=== PATIENT | female | born 1965 | race Caucasian/White ===

== ENCOUNTER 2018-09-26 14:51 | Emergency (ER) | payer BC ==
--- NOTE | 2018-09-26 15:44 | ED ---
Skin Complaint - HPI Summary HPI Summary: 53 y/o female presents to the urgent care c/o Bit by unknown bug to back of left knee. Using ice to ease pain. Putting benadryl cream on it and taking benadryl PO and ibuprofen. Pt felt feverish. Stated she had a hard time breathing last night. - History of Current Complaint Time Seen by Provider: 09/26/18 15:43 Stated Complaint: FEVER/BUG BITE BACK OF LEG Hx Obtained From: Patient Onset/Duration: Started Days Ago - 4 days agos possible insect bite while she was running, Still Present Skin Exposure Onset/Duration: Days Ago - 4 days ago, Worse Since: - yesterday w / subjective fever at home Timing: Constant Onset Severity: Mild Current Severity: Moderate Pain Intensity: 4 - at touch Pain Scale Used: 0-10 Numeric Skin Location: Leg - posterior left knee w/ a red rash painful s/p possible insect bite Character: Redness, Painful Aggravating Symptom(s): Touch Alleviating Symptom(s): OTC Meds - Advil PO 400mg PO, Antihistamines Associated Signs & Symptoms: Fever, Chills, Rash, Tenderness Related History: Possible Reaction to: Insect - Allergy/Home Medications Allergies/Adverse Reactions: Allergies Allergy/AdvReac Type Severity Reaction Status Date / Time No Known Allergies Allergy Verified 09/26/18 15:53 Home Medications: Home Medications Ibuprofen TAB* [Advil TAB*] 600 mg PO Q6H PRN 09/26/18 [History Confirmed ] PMH/Surg Hx/FS Hx/Imm Hx Previously Healthy: Yes - Pt deneis PMHX Infectious Disease History: Denies: Traveled Outside the [place] in Last 30 Days Discharge - Discharge Plan Prescriptions: Bacitracin OINTMENT* 1 applic TOPICAL BID #1 tube Cephalexin CAP* [Keflex CAP*] 500 mg PO QID #28 cap Referrals: Stacy Ni [Primary Care Provider] -
[2018-09-26 15:53] VITALS: BP 93/61
--- NOTE | 2018-09-26 16:15 | UC ---
Skin Complaint HPI - HPI Summary HPI Summary: 53 y/o female presents to the urgent care c/o posterior left knee w/ a red rash s/p possible insect bite on 09/23/2018. Pt reports she was running an she felt something bit her, but she didn't see it. She applied Benadryl topical cream and Ibuprofen Po tot alleviate symptoms w/o any improvement since rash has increase in size. yesterday she developed subjective fever and felt mild SOB. She has taken Advil 400mg PO to alleviate symptoms. She likes to run everyday and her BP is usually in the low side. Pt denies SOB, hoarseness, cough, throat tightening, KAUR dizziness, chest pain, abdominal pain, N/V/D. - History of Current Complaint Chief Complaint: UCSkin Time Seen by Provider: 09/26/18 15:43 Stated Complaint: FEVER/BUG BITE BACK OF LEG Hx Obtained From: Patient ?: No Onset/Duration: Gradual Onset, Lasting Days - 4 days ago possible insect bite while, Still Present, Worse Since - last night w/ subjective fever Timing: Constant Onset Severity: Mild Current Severity: Moderate Pain Intensity: 4 - at touch Pain Scale Used: 0-10 Numeric Location: Discrete - posterior side of left knee Character: Redness, Painful Aggravating Factor(s): Touch Alleviating Factor(s): OTC Meds, OTC Creams/Salves Associated Signs & Symptoms: Positive: Fever, Rash - posterior side of left knee w/ a red rash s/p possible insect bite Related History: Possible Reaction to: Insect - Allergy/Home Medications Allergies/Adverse Reactions: Allergies Allergy/AdvReac Type Severity Reaction Status Date / Time No Known Allergies Allergy Verified 09/26/18 15:53 Home Medications: Home Medications Ibuprofen TAB* [Advil TAB*] 600 mg PO Q6H PRN 09/26/18 [History Confirmed ] PMH/Surg Hx/FS Hx/Imm Hx Previously Healthy: Yes - Pt denies PMHX - Surgical History Surgical History: Yes Surgery Procedure, Year, and Place: c section. ablation. breast augmentation - Family History Known Family History: Positive: Hypertension, Diabetes - Social History Occupation: Employed Full-time Lives: With Family Alcohol Use: None Substance Use Type: None Smoking Status (MU): Never Smoked Tobacco - Immunization History Most Recent Tetanus Shot: unknown Review of Systems All Other Systems Reviewed And Are Negative: Yes Constitutional: Positive: Fever Skin: Positive: Rash - posterior side of left knee w/ a red rash s/p possible insect bite Eyes: Positive: Negative ENT: Positive: Negative Respiratory: Positive: Negative Cardiovascular: Positive: Negative Gastrointestinal: Positive: Negative Genitourinary: Positive: Negative Motor: Positive: Negative Neurovascular: Positive: Negative Musculoskeletal: Positive: Negative Neurological: Positive: Negative Psychological: Positive: Negative Is Patient Immunocompromised?: No Physical Exam - Summary Physical Exam Summary: Vital Signs Reviewed: Yes General: well appearing, well nourished female in no acute apparent pain distress, sitting comfortably on examining table Eye Exam: Normal Eyes: Positive: Conjunctiva Clear - PERRLA< EOMI, fundi grossly normal ENT: Positive: Normal ENT inspection, Hearing grossly normal, Pharynx normal, TMs normal Neck: Positive: Supple, Nontender, No Lymphadenopathy Respiratory: Positive: Chest non-tender, Lungs clear, Normal breath sounds, No respiratory distress Cardiovascular: Positive: RRR, No Murmur, Pulses Normal, Brisk Capillary Refill Abdomen Description: Positive: Nontender, No Organomegaly, Soft. Negative: CVA Tenderness (R), CVA Tenderness (L) Bowel Sounds: Positive: Present Musculoskeletal: Positive: Strength Intact, ROM Intact, No Edema Neurological: Positive: Alert, Muscle Tone Normal Psychological Exam: Normal Skin: Positive: posterior side of left knee Positive erythematous patch w/ indistinct borders w/ center insect bite about 4.0cm x 5.0cm in size, warm and tender to palpation, no drainage observed. pulses WNL, capillary refill brisk, sensation WNL. Triage Information Reviewed: Yes Vital Signs: Initial Vital Signs Temp 98.3 F 09/26/18 15:46 Pulse 104 09/26/18 15:46 Resp 18 09/26/18 15:46 BP 93/61 09/26/18 15:46 Pulse Ox 99 09/26/18 15:46 Course/Dx - Course Course Of Treatment: 53 y/o female presents to the urgent care c/o posterior left knee w/ a red rash s/p possible insect bite on 09/23/2018. Pt reports she was running an she felt something bit her, but she didn't see it. She applied Benadryl topical cream and Ibuprofen Po tot alleviate symptoms w/o any improvement since rash has increase in size. yesterday she developed subjective fever and felt mild SOB. She has taken Advil 400mg PO to alleviate symptoms. She likes to run everyday and her BP is usually in the low side. Pt denies SOB, hoarseness, cough, throat tightening, KAUR dizziness, chest pain, abdominal pain, N/V/D. Hx obtained. Pt is hemodynamically stable w/o any acute distress. Pt w/ Cellulitis of Left posterior knee s/p insect bite. Pt Rx Keflex PO, Benadryl PO, and topical Bacitracin. rash demarcated with a skin marker and Advised if rash doubles in size and if she develops a fever to go immediately to the ER for further treatment. Otherwise to f/u w/ her PCP in 2-3 days if rash is not improving. D/C instructionse Pt understood and agreed. - Differential Diagnoses - Skin Complaint Differential Diagnoses: Abscess, Cellulitis, Contact Dermatitis, Local Allergic Reaction, MRSA, Tick Born Illness, Urticaria - Diagnoses Provider Diagnosis: Cellulitis of left knee, Insect bite Discharge - Sign-Out/Discharge Documenting (check all that apply): Patient Departure - D/C home All imaging exams completed and their final reports reviewed: No Studies - Discharge Plan Condition: Stable Disposition: HOME Prescriptions: Bacitracin OINTMENT* 1 applic TOPICAL BID #1 tube Cephalexin CAP* [Keflex CAP*] 500 mg PO QID #28 cap Patient Education Materials: Cellulitis (ED) Referrals: Stacy Ni [Primary Care Provider] - 2 Days Additional Instructions: 1-Please take keflex PO full course of Antibiotic. Take yogurts w/ probiotics or culturelle to protect your GI system 2- If redness and swelling doubles in size beyond what was demarcated after 48 hrs of taking antibiotic and fever develops please go to the ER immediately. 3-Avoid standing for long periods of time or flexing your knee, keep it elevated and keep wound clean and dry. Apply bacitracin oint over the insect bite 4-Please F/u with your PCP in 2-3 days to make sure rash if not improvement of symptoms for further evaluation and treatment. - Billing Disposition and Condition Condition: STABLE Disposition: Home
== END 2018-09-26 16:30 | disposition home or self-care (01) ==
LOC: UCCORT 14:51
DX: S80.262A Insect bite (nonvenomous), left knee, initial encounter (principal); L03.116 Cellulitis of left lower limb; W57.XXXA Bitten or stung by nonvenomous insect and other nonvenomous arthropods, initial encounter; Y93.02 Activity, running; Y92.9 Unspecified place or not applicable
CPT/HCPCS: 99202; G0463

== ENCOUNTER 2018-09-28 20:38 | Emergency (ER) | payer BC ==
--- OUTSIDE RECORDS SUMMARY | 2018-09-28 20:51 | XMS REPORT | Continuity of Care Document ---
:1965 External Reference #:[id number] Author Name Stacy Ni NP Address [address] [place] [address] Care Team Providers Name Role Phone Stacy Ni NP Care Team Information Eclectic Doctor Unavailable Payers Date Identification Numbers Payment Provider Subscriber Policy Number: [id number] [facility] Commercial Neisha Garcia PayID: [id number] [address] [address] [place] [address] Expires: 2018 Policy Number: [id number] [facility] Commercial Eneida Garcia Group Number: [id number] [address] PayID: [id number] [place] [address] Problems Active Problems Provider Date No current problems or disability Onset: 05/21/2010 Family History Date Family Member(s) Observation Comments General Cancer, Breast cousins General Heart Disease father, maternal uncles General Diabetes, Adult maternal uncles Social History Type Date Description Comments Sex Unknown Marital Status Lives With Spouse 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 [employer] 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 [employer] Hand Dominance RIGHT-handed ETOH Use Denies alcohol use Tobacco Use Start: Unknown Patient has never smoked Smoking Status Reviewed: 09/28/18 Patient has never smoked Allergies, Adverse Reactions, Alerts Active Allergies Reaction Severity Comments Date Doxycycline rash, swelling 02/22/2018 Inactive Allergies NKDA 03/31/2014 Medications Active Medications SIG Qnty Indications Ordering Date Provider Sulfamethoxazole/Trim 1 by mouth every 12 20tabs L03.116 Digiovanna, 09/28 ethoprim DS hours for 10 days KATERINA Kumar 800-160mg Tablets Drysol apply to underams 35ml Digiovanna, 10/09/2017 20% Solution daily for 2-3 days Stacy, FOUR SLIDE OPERATOR then 1-2x/week consistently Triamcinolone apply to mouth 5gm Digiovanna, 01/26/2017 Acetonide Dental sores up to four Stacy, FOUR SLIDE OPERATOR Paste times a day 0.1% Paste Valacyclovir HCL 1 by mouth every 90tabs A60.04 Digiovanna, 08/22/2016 1gm day Stacy, FOUR SLIDE OPERATOR Tablets Acetaminophen 2 PO Q 4 Hours prn Robbie Cochran, 325mg MD Tablets Ibuprofen 2 tab three times a Unknown 200mg Tablets day as needed History Medications Amoxicillin/Clavulanate 1 by mouth 20tabs Larryiokassidy, 02/22/2018 - Potassium every 12 hours KATERINA Kumar 03/04/2018 875-125mg Tablets for 10 days Doxycycline Hyclate 1 by mouth 20tabs J01.9 Digiovanna, 02/19/2018 - 100mg Tablets twice a day for 0 Stacy, FOUR SLIDE OPERATOR 02/22/2018 10 days - take with food but not milk Carbamazepine ER 1 po daily Willian Ignacio MD 07/27/2017 - 100mg Tablets ER 09/21/2018 12HR Amoxicillin 1 pill by mouth 20tabs H66.9 Emile Oliva, 06/11/2017 - 875mg Tablets twice a day x 1 DO 06/21/2017 10 days Ciprodex 4 drops in 7.500ml H60.3 Emile Oliva, 06/11/2017 - 0.3-0.1% Suspension RIGHT ear twice 11 DO 09/21/2018 daily for 7 days Oseltamivir Phosphate 1 pill once 10caps Emile Oliva, 04/23/2017 - 75mg Capsules daily for 10 DO 05/03/2017 days Prednisone 2x/day by mouth 6tabs Digiovanna, 01/09/2017 - 20mg Tablets for 3 days KATERINA Kumar 01/12/2017 Diflucan 1 by mouth now 1tabs Yamil, 06/25/2015 - 150mg Tablets Julian, DO 06/25/2015 Valtrex 2 PO Q D 60tabs A60.0 Yamil, 06/25/2015 - 500mg Tablets 4 Julian, DO 06/25/2015 Valtrex 1 PO Q D 90tabs Yamil, 06/25/2015 - 1gm Tablets DO Julian 08/22/2016 Acyclovir 1 by mouth 45tabs A60.0 Kelly Vasquez, 04/12/2015 - 400mg Tablets three times a 4 MD 06/25/2015 day x 5 days as needed for outbreak Hydrocortisone-Acetic Acid 3 drops each 20ml H60.8 Yamil, 03/21/2015 - 1-2% ear twice a day x3 DO Julian 07/15/2016 Solution for 10 days Augmentin 1 by mouth 20tabs 466.0 Yamil, 08/17/2014 - 500-125mg Tablets twice a day DO Julian 08/27/2014 Benzonatate 1 by mouth 30caps 466.0 Yamil, 08/17/2014 - 200mg Capsules three times a DO Julian 08/27/2014 day Amoxicillin/Clavulanate 1 by mouth 20tabs Raine, 04/12/2014 - Potassium every 12 hours KATERINA Kumar 04/22/2014 875-125mg Tablets for 10 days Benzonatate 1 by mouth 30caps 465.9 Digiovanna, 03/31/2014 - 200mg Capsules every 8 hours KATERINA Kumar 08/17/2014 as needed for cough, may cause drowsiness Triamcinolone Acetonide apply to 80gm Digxavier, 03/03/2014 - 0.1% Cream affected area KATERINA Kumar 07/15/2016 twice a day for no more than 3 days Ibu-Drops prn Unknown - 50mg/1.25ML Suspension 07/15/2016 Cephalexin 1 by mouth four L03.1 Unknown - 500mg Capsules times a day x 7 16 09/28/2018 days Given at Urgent Care Immunizations CPT Code Status Date Vaccine Lot # [id number] Refused 03/31/2014 Immunization Td 7 Yrs Or Older Vital Signs Date Vital Result Comment 09/28/2018 10:01am Body Temperature 98.3 F tympanic Weight 126.56 lb Heart Rate 84 /min BP Systolic 88 mmHg BP Diastolic 60 mmHg Respiratory Rate 16 /min Height 63 inches 5'3" BMI (Body Mass Index) 22.4 kg/m2 09/21/2018 11:31am Weight 126.06 lb Heart Rate 76 /min BP Systolic 104 mmHg BP Diastolic 68 mmHg Respiratory Rate 16 /min Height 63 inches 5'3" BMI (Body Mass Index) 22.3 kg/m2 02/19/2018 1:46pm Body Temperature 97.9 F tympanic Weight 126.12 lb Heart Rate 78 /min BP Systolic 126 mmHg BP Diastolic 78 mmHg Respiratory Rate 16 /min Height 63 inches 5'3" O2 % BldC Oximetry 98 % Room Air BMI (Body Mass Index) 22.3 kg/m2 06/11/2017 1:03pm Body Temperature 97.0 F Weight 133.00 lb Heart Rate 74 /min BP Systolic 110 mmHg BP Diastolic 62 mmHg Respiratory Rate 18 /min Height 63 inches 5'3" BMI (Body Mass Index) 23.6 kg/m2 01/09/2017 11:32am Body Temperature 96.7 F Heart Rate 73 /min BP Systolic 110 mmHg BP Diastolic 58 mmHg Respiratory Rate 14 /min 10/10/2016 10:54am Weight 135.00 lb Heart Rate 70 /min BP Systolic 102 mmHg BP Diastolic 68 mmHg Respiratory Rate 18 /min Height 64 inches 5'4" BMI (Body Mass Index) 23.2 kg/m2 Last Menstrual Period [id number] had ablation 07/15/2016 8:20am Weight 135.00 lb Heart Rate 80 /min BP Systolic 110 mmHg BP Diastolic 70 mmHg Respiratory Rate 17 /min Height 64 inches 5'4" BMI (Body Mass Index) 23.2 kg/m2 04/12/2015 4:26pm Weight 130.00 lb Heart Rate 84 /min BP Systolic 100 mmHg BP Diastolic 70 mmHg Respiratory Rate 18 /min Height 64 inches 5'4" BMI (Body Mass Index) 22.3 kg/m2 03/21/2015 10:25am Body Temperature 98.2 F Weight 132.00 lb Heart Rate 78 /min BP Systolic 110 mmHg BP Diastolic 70 mmHg Respiratory Rate 18 /min Height 64 inches 5'4" BMI (Body Mass Index) 22.7 kg/m2 12/07/2014 9:48am Body Temperature 98.7 F Weight 130.00 lb Heart Rate 90 /min BP Systolic 100 mmHg BP Diastolic 60 mmHg Respiratory Rate 18 /min Height 64 inches 5'4" O2 % BldC Oximetry 98 % BMI (Body Mass Index) 22.3 kg/m2 08/17/2014 3:32pm Body Temperature 97.9 F Weight 132.00 lb Heart Rate 78 /min BP Systolic 108 mmHg BP Diastolic 60 mmHg Height 64 inches 5'4" O2 % BldC Oximetry 98 % Ra BMI (Body Mass Index) 22.7 kg/m2 03/31/2014 9:58am Body Temperature 97.5 F Weight 131.31 lb Heart Rate 88 /min BP Systolic 102 mmHg BP Diastolic 70 mmHg Respiratory Rate 18 /min Height 63 inches 5'3" Done On 03/31/14 O2 Saturation Level with Exercise 96 % BMI (Body Mass Index) 23.3 kg/m2 03/03/2014 11:30am Weight 130.00 lb With Shoes Heart Rate 68 /min BP Systolic 118 mmHg BP Diastolic 70 mmHg Respiratory Rate 18 /min Height 62 inches 5'2" 08/26/2013 9:32am Weight 133.00 lb Heart Rate 68 /min BP Systolic 104 mmHg BP Diastolic 64 mmHg Respiratory Rate 17 /min Height 62 inches 5'2" Results Test Date Facility Test Result H/L Range Note Laboratory test 12/07/2014 [facility] Culture SEE NOTE 1 finding 1 SPECIMEN DESCRIPTION THROAT SWAB CULTURE RESULTS NORMAL THROAT ALANA NO BETA HEMOLYTIC STREPTOCOCCI ISOLATED REPORT STATUS FINAL 12/09/2014 Unless otherwise specified, testing performed by [facility] [address] [place] [id number] Procedures Date Code Description Status 12/21/2017 68119413 Mammogram Completed 10/10/2016 14844 Visual Screening Test Completed 10/10/2016 25747 Screening Hearing Test Completed 10/10/2016 78242 X-Ray Pelvis Complete Three Views Completed 10/10/2016 07614 X-Ray Pelvis Ap Only Completed 06/12/2015 51097 Ultrasound Breast Unilateral Real Time W/ Image Doc Inc Completed Axilla 12/07/2014 64746 Measure Blood Oxygen Level Single Determination Completed 03/31/2014 01799 Measure Blood Oxygen Level Single Determination Completed 01/07/2012 10373 Omt 1-2 Body Regions Completed Encounters Type Date Location Provider Dx Diagnosis Office Visit 09/21/2018 Cedric Calle9.2 Neoplasm of unsp 11:30a Stacy, FOUR SLIDE OPERATOR behavior of bone, soft tissue, and skin N95.1 Menopausal and female climacteric states Z12.11 Encounter for screening for malignant neoplasm of colon Office Visit 02/19/2018 1:45p [facility] Stacy Ni, J01.90 Acute sinusitis, FOUR SLIDE OPERATOR unspecified Office Visit 06/11/2017 1:00p [facility] Lottie Sullivan PA H66.91 Otitis media , unspecified, RIGHT ear H60.311 Diffuse otitis externa, RIGHT ear Office Visit 01/09/2017 11:30a [facility] Stacy Ni, L30.9 Dermatitis, FOUR SLIDE OPERATOR unspecified Office Visit 10/10/2016 11:00a [facility] Stacy Ni, Z00.00 Encntr for general FOUR SLIDE OPERATOR adult medical exam w/o abnormal findings A60.04 Herpesviral vulvovaginitis M25.559 Pain in unspecified hip R04.0 Epistaxis Z68.23 Body mass index (BMI) 23.0-23.9, adult Office Visit 07/15/2016 8:15a [facility] Raine, 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 SLIDE OPERATOR neoplasm of skin, subcu of trunk Office Visit 04/12/2015 4:15p [facility] Kelly Vasquez MD A60.04 Herpesviral vulvovaginitis Office Visit 03/21/2015 10:15a [facility] Julian Lobo DO H60.8x3 Other otitis externa, bilateral Office Visit 12/07/2014 9:45a [facility] Stacia Finney, J06.9 Acute upper PA respiratory infection, unspecified J02.9 Acute pharyngitis, unspecified Office Visit 08/17/2014 3:15p [facility] Julian Lobo DO 466.0 Bronchitis Acute Office Visit 03/31/2014 9:45a [facility] Stacy Ni, 465.9 URI Upper Respiratory FOUR SLIDE OPERATOR Infections Acute Unspec Sites 214.8 Lipoma Other Specified Sites Plan of Treatment Future Appointment(s):10/05/2018 11:30 am - Stacy Ni NP at [facility]09/28 - Stacy Ni NPL03.116 Cellulitis of LEFT lower limbNew Medication:Sulfamethoxazole/Trimethoprim DS 800-160 mg - 1 by mouth every 12 hours for 10 daysComments:Start using warm moist compresses to area for 15-20' every 3-4 hours.Change Cephalexin to Bactrim, drink plenty of water with this med.Return to ER for any further fever.Follow up:1 week for recheck
--- OUTSIDE RECORDS SUMMARY | 2018-09-28 20:52 | XMS REPORT | Continuity of Care Document ---
:1965 External Reference #:[id number] Author Name Stacy Ni, KATERINA Address [address] [place] [address] Care Team Providers Name Role Phone Stacy Ni NP Care Team Information Lumber Straightened Unavailable Payers Date Identification Numbers Payment Provider Subscriber Policy Number: [id number] [facility] Ppo Neisha Garcia PayID: [id number] [address] [address] [place] [address] Expires: 2018 Policy Number: [id number] [facility] Commercial Eneida Garcia Group Number: [id number] [address] PayID: [id number] [place] [address] Problems Active Problems Provider Date No current problems or disability Onset: 05/21/2010 Family History Date Family Member(s) Observation Comments General Cancer, Breast cousins General Heart Disease father, maternal uncles General Diabetes, Adult maternal uncles Social History Type Date Description Comments Sex Unknown Marital Status Lives With Spouse 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 [employer] 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 ETOH Use Denies alcohol use Tobacco Use Start: Unknown Patient has never smoked Smoking Status Reviewed: 09/21/18 Patient has never smoked Allergies, Adverse Reactions, Alerts Active Allergies Reaction Severity Comments Date Doxycycline rash, swelling 02/22/2018 Inactive Allergies NKDA 03/31/2014 Medications Active Medications SIG Qnty Indications Ordering Date Provider Drysol apply to underams 35ml Digiovanna, 10/09/2017 20% Solution daily for 2-3 days Stacy, LIFESTYLE DIRECTOR then 1-2x/week consistently Triamcinolone apply to mouth 5gm Digiovanna, 01/26/2017 Acetonide Dental sores up to four Stacy LIFESTYLE DIRECTOR Paste times a day 0.1% Paste Valacyclovir HCL 1 by mouth every 90tabs A60.04 Digiovanna, 08/22/2016 1gm day Stacy, LIFESTYLE DIRECTOR Tablets Acetaminophen 2 PO Q 4 Hours prn Robbie Cochran, 325mg Tablets History Medications Amoxicillin/Clavulanate 1 by mouth 20tabs Larryiokassidy, 02/22/2018 - Potassium every 12 hours KATERINA Kumar 03/04/2018 875-125mg Tablets for 10 days Doxycycline Hyclate 1 by mouth 20tabs J01.9 Digiovanna, 02/19/2018 - 100mg Tablets twice a day for 0 Stacy LIFESTYLE DIRECTOR 02/22/2018 10 days - take with food [...] 05/03/2017 days Prednisone 2x/day by mouth 6tabs Digiokassidy, 01/09/2017 - 20mg Tablets for 3 days Stacy LIFESTYLE DIRECTOR 01/12/2017 Valtrex 1 PO Q D 90tabs Yamil, 06/25/2015 - 1gm Tablets Julian, DO 08/22/2016 Valtrex 2 PO Q D 60tabs A60.0 Yamil, 06/25/2015 - 500mg Tablets 4 Julian, DO 06/25/2015 Diflucan 1 by mouth now 1tabs Yamil, 06/25/2015 - 150mg Tablets Julian, DO 06/25/2015 Acyclovir 1 by mouth 45tabs A60.0 Kelly [...] 08/27/2014 day Amoxicillin/Clavulanate 1 by mouth 20tabs Digiovankarine, 04/12/2014 - Potassium every 12 hours KATERINA Kumar 04/22/2014 875-125mg Tablets for 10 days Benzonatate 1 by mouth 30caps 465.9 Digiovanna, 03/31/2014 - 200mg Capsules every 8 hours KATERINA Kumar 08/17/2014 as needed for cough, may cause drowsiness Triamcinolone Acetonide apply to 80gm Digiovanna, 03/03/2014 - 0.1% Cream affected area KATERINA Kumar 07/15/2016 twice a day for no more than 3 days Ibu-Drops prn Unknown - 50mg/1.25ML Suspension 07/15/2016 Immunizations CPT Code Status Date Vaccine Lot # [id number] Refused 03/31/2014 Immunization Td 7 Yrs Or Older Vital Signs Date Vital Result Comment 09/21/2018 11:31am Weight 126.06 lb Heart Rate [...] Mass Index) 23.2 kg/m2 Last Menstrual Period 1538235 had ablation 07/15/2016 8:20am Weight 135.00 lb [...] Unless otherwise specified, testing performed by [facility] [address] [place] [id number] Procedures Date Code Description Status 12/21/2017 59432118 Mammogram Completed 10/10/2016 57807 Visual Screening Test Completed 10/10/2016 49282 Screening Hearing Test Completed 10/10/2016 56291 X-Ray Pelvis Complete Three Views Completed 10/10/2016 57649 X-Ray Pelvis Ap Only Completed 06/12/2015 57206 Ultrasound Breast Unilateral Real Time W/ Image Doc Inc Completed Axilla 12/07/2014 44273 Measure Blood Oxygen Level Single Determination Completed 03/31/2014 64576 Measure Blood Oxygen Level Single Determination Completed 01/07/2012 93901 Omt 1-2 Body Regions Completed Encounters Type Date Location Provider Dx Diagnosis Office Visit 02/19/2018 [place] [facility], J01.90 Acute sinusitis, 1:45p Stacy, LIFESTYLE DIRECTOR unspecified Office Visit 06/11/2017 [facility] Lottie Sullivan PA H66.91 Otitis media, 1:00p unspecified, RIGHT ear H60.311 Diffuse otitis externa, RIGHT ear Office Visit 01/09/2017 11:30a [facility] Stacy Ni, L30.9 Dermatitis, LIFESTYLE DIRECTOR unspecified Office Visit 10/10/2016 11:00a [facility] Mark Niia, Z00.00 Encntr for general LIFESTYLE DIRECTOR adult medical exam w/o abnormal findings A60.04 Herpesviral vulvovaginitis M25.559 Pain in unspecified hip R04.0 Epistaxis Z68.23 Body mass index (BMI) 23.0-23.9, adult Office Visit 07/15/2016 8:15a [place] Ni 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, LIFESTYLE DIRECTOR neoplasm of skin, subcu of trunk Office Visit 04/12/2015 4:15p [facility] Kelly Vasquez MD A60.04 Herpesviral vulvovaginitis Office Visit 03/21/2015 10:15a [facility] Julian Lobo DO H60.8x3 Other otitis externa, bilateral Office Visit 12/07/2014 9:45a [facility] Stacia Finney, J06.9 Acute upper PA respiratory infection, unspecified J02.9 Acute pharyngitis, unspecified Office Visit 08/17/2014 3:15p [facility] Julian Lobo DO 466.0 Bronchitis Acute Office Visit 03/31/2014 9:45a [facility] Stacy Ni 465.9 URI Upper Respiratory LIFESTYLE DIRECTOR Infections Acute Unspec Sites 214.8 Lipoma Other Specified Sites Plan of Treatment 09/21/2018 - Stacy Ni NPD49.2 Neoplasm of unspecified behavior of bone, soft tissue, and sComments:Will refer for derm evaluationReferral:Bell Charles MD,N95.1 Menopausal and female climacteric statesComments:Stay as cool as possibleMay try Black Cohosh but avoid other supplementsDiscussed hormone replacement therapy, declinesFollow up:PRN for increased or persistent pfxfeeapL10.11 Encounter for screening for malignant neoplasm of colonComments: Agrees to cologuard.
[2018-09-28 21:19] LABS: ABS Monocytes 0.4 10^3/ul (0-0.8); ABS Neutrophils 3.5 10^3/ul (1.5-7.7); Eosinophil % 0.2 %; Hematocrit 36 % (35-47); Hemoglobin 12.8 g/dL (12.0-16.0); Lymphocyte % 19.7 %; Mean Corpuscular HGB Conc 36 g/dL (31-36); Mean Corpuscular Hemoglobin 31 pg (27-31); Mean Corpuscular Volume 87 fL (80-97); Mean Platelet Volume 6.3 fL (7.4-10.4); Nucleated Red Blood Cells % 0.1; Platelet Count 238 10^3/uL (150-450); Red Blood Count 4.16 10^6 /uL (3.70-4.87); Red Cell Distribution Width 13 % (10-15); White Blood Count 4.9 10^3/uL (3.5-10.8)
[2018-09-28] MEDS ORDERED: NS 0.9% 1000 ML** 1,000 ML IV ONE ×2 (21:22→22:41)
[2018-09-28] MEDS ORDERED: Clindamycin 600 MG/D5W BAG(*) 600 MG/50 ML BAG IV ONE (21:22)
[2018-09-28 21:27] LABS: Activated Partial Thrombo Time 27.1 seconds (26.0-38.0)
[2018-09-28 21:32] LABS: Urine Appearance Cloudy; Urine Bilirubin Negative (Negative); Urine Blood Negative (Negative); Urine Color Straw; Urine Glucose Negative (Negative); Urine Ketones Negative (Negative); Urine Nitrite Negative (Negative); Urine Protein Negative (Negative); Urine Specific Gravity 1.001 (1.010-1.030); Urine Urobilinogen Negative (Negative)
[2018-09-28 21:36] LABS: Albumin/Globulin Ratio 1.1 (1-3); BUN/Creatinine Ratio 17.5 (8-20); Calcium 9.4 mg/dL (8.6-10.3); EGFR African American 135.3 (>60); EGFR Non-African American 111.8 (>60); Globulin 3.8 g/dL (2-4); Potassium 2.8 mmol/L (3.5-5.0); Total Bilirubin 0.7 mg/dL (0.2-1.0); Total Protein 7.8 g/dL (6.4-8.9)
[2018-09-28] MEDS ORDERED: Clindamycin 600 MG IVPREMIX(* 600 MG/50 ML SDV IV ONE (22:00)
[2018-09-28] MEDS ORDERED: KCL 20 MEQ/100 ML IVPREMIX* 20 MEQ/100 ML BAG IV ONE (22:42)
[2018-09-28] MEDS ORDERED: Potassium Chloride* LIQUID 20 MEQ/15 ML UDC PO ONE (22:52)
--- NOTE | 2018-09-28 22:52 | ED ---
Skin Complaint - HPI Summary HPI Summary: 53-year-old female presents with cellulitis to left leg for the past couple days. She started on Keflex 2 days ago. She saw her primary this morning and was told to stop keflex and start Bactrim. She states she was having fevers but they resolved this morning. She states redness has been spreading today. She admits to chills that have resolved. She states it is very painful. It started as a bug bite with itchy but itchiness has resolved. States she gets occasional shortness of breath. No chest pain. No sore throat. She took some Benadryl which seemed to help. No history of this. No drainage from the area. - History of Current Complaint Chief Complaint: EDRashSkinAbscess Time Seen by Provider: 09/28/18 20:53 Stated Complaint: SKIN RASH/INFECTION PER PT Pain Intensity: 0 - Allergy/Home Medications Allergies/Adverse Reactions: Allergies Allergy/AdvReac Type Severity Reaction Status Date / Time No Known Allergies Allergy Verified 09/28/18 20:43 Home Medications: Home Medications Sulfamethox/Trimethoprim DS* 1 tab PO BID 09/28/18 [History Confirmed 09/28/18] PMH/Surg Hx/FS Hx/Imm Hx Endocrine/Hematology History: Denies: Hx Diabetes, Hx Thyroid Disease Cardiovascular History: Denies: Hx Hypertension Respiratory History: Denies: Hx Asthma, Hx Chronic Obstructive Pulmonary Disease (COPD) GI History: Denies: Hx Ulcer - Surgical History Surgery Procedure, Year, and Place: c section. ablation. breast augmentation Infectious Disease History: No Infectious Disease History: Reports: Hx of Known/Suspected MRSA - on nose, 10 years ago Denies: Hx Hepatitis, Hx Human Immunodeficiency Virus (HIV), Traveled Outside the [place] in Last 30 Days - Family History Known Family History: Positive: Hypertension, Diabetes - Social History Alcohol Use: None Substance Use Type: Reports: None Smoking Status (MU): Never Smoked Tobacco Review of Systems Positive: Fever - resolved Negative: Chest Pain Negative: Shortness Of Breath Positive: Rash All Other Systems Reviewed And Are Negative: Yes Physical Exam Triage Information Reviewed: Yes Vital Signs On Initial Exam: Initial Vitals Temp Pulse Resp BP Pulse Ox 98.0 F 97 16 112/79 100 09/28/18 20:40 09/28/18 20:40 09/28/18 20:40 09/28/18 20:40 09/28/18 20:40 Vital Signs Reviewed: Yes Appearance: Positive: Well-Appearing Skin: Positive: Warm, Dry, Other - 12cm by 8cm area of erythema on posterior aspect of left knee Head/Face: Positive: Normal Head/Face Inspection Eyes: Positive: Normal, Conjunctiva Clear ENT: Positive: Pharynx normal Respiratory/Lung Sounds: Positive: Clear to Auscultation, Breath Sounds Present Cardiovascular: Positive: Normal, RRR Musculoskeletal: Positive: Strength/ROM Intact - left leg, Other - good pules Neurological: Positive: Normal Psychiatric: Positive: Normal Diagnostics - Vital Signs Vital Signs Temp Pulse Resp BP Pulse Ox 09/28/18 21:11 98 09/28/18 21:00 97.7 F 09/28/18 20:40 98.0 F 97 16 112/79 100 - Laboratory Lab Results: Lab Results 09/28/18 09/28/18 09/28/18 Range/Units 21:06 21:06 21:06 WBC 4.9 (3.5-10.8) 10^3/uL RBC 4.16 (3.70-4.87) 10^6 /uL Hgb 12.8 (12.0-16.0) g/dL Hct 36 (35-47) % MCV 87 (80-97) fL MCH 31 (27-31) pg MCHC 36 (31-36) g/dL RDW 13 (10-15) % Plt Count 238 (150-450) 10^3/uL MPV 6.3 L (7.4-10.4) fL Neut % (Auto) 71.6 % Lymph % (Auto) 19.7 % [place] % (Auto) 8.0 % Eos % (Auto) 0.2 % Baso % (Auto) 0.5 % Absolute Neuts (auto) 3.5 (1.5-7.7) 10^3/ul Absolute Lymphs (auto) 1.0 (1.0-4.8) 10^3/ul Absolute Monos (auto) 0.4 (0-0.8) 10^3/ul Absolute Eos (auto) 0.0 (0-0.6) 10^3/ul Absolute Basos (auto) 0.0 (0-0.2) 10^3/ul Absolute Nucleated RBC 0.0 10^3/ul Nucleated RBC % 0.1 INR (Anticoag Therapy) 1.00 (0.82-1.09) APTT 27.1 (26.0-38.0) seconds Sodium 129 L (135-145) mmol/L Potassium 2.8 L (3.5-5.0) mmol/L Chloride 95 L (101-111) mmol/L Carbon Dioxide 25 (22-32) mmol/L Anion Gap 9 (2-11) mmol/L BUN 10 (6-24) mg/dL Creatinine 0.57 (0.51-0.95) mg/dL Est GFR ( Amer) 135.3 (>60) Est GFR (Non-Af Amer) 111.8 (>60) BUN/Creatinine Ratio 17.5 (8-20) Glucose 112 H (70-100) mg/dL Lactic Acid (0.5-2.0) mmol/L Calcium 9.4 (8.6-10.3) mg/dL Total Bilirubin 0.70 (0.2-1.0) mg/dL AST 61 H (13-39) U/L ALT 75 H (7-52) U/L Alkaline Phosphatase 135 H (34-104) U/L Total Protein 7.8 (6.4-8.9) g/dL Albumin 4.0 (3.2-5.2) g/dL Globulin 3.8 (2-4) g/dL Albumin/Globulin Ratio 1.1 (1-3) Urine Color Urine Appearance Urine pH (5-9) Ur Specific [place] (1.010-1.030) Urine Protein (Negative) Urine Ketones (Negative) Urine Blood (Negative) Urine Nitrate (Negative) Urine Bilirubin (Negative) Urine Urobilinogen (Negative) Ur Leukocyte Esterase (Negative) Urine Glucose (Negative) 09/28/18 09/28/18 Range/Units 21:06 21:23 WBC (3.5-10.8) 10^3/uL RBC (3.70-4.87) 10^6 /uL Hgb (12.0-16.0) g/dL Hct (35-47) % MCV (80-97) fL MCH (27-31) pg MCHC (31-36) g/dL RDW (10-15) % Plt Count (150-450) 10^3/uL MPV (7.4-10.4) fL Neut % (Auto) % Lymph % (Auto) % [place] % (Auto) % Eos % (Auto) % Baso % (Auto) % Absolute Neuts (auto) (1.5-7.7) 10^3/ul Absolute Lymphs (auto) (1.0-4.8) 10^3/ul Absolute Monos (auto) (0-0.8) 10^3/ul Absolute Eos (auto) (0-0.6) 10^3/ul Absolute Basos (auto) (0-0.2) 10^3/ul Absolute Nucleated RBC 10^3/ul Nucleated RBC % INR (Anticoag Therapy) (0.82-1.09) APTT (26.0-38.0) seconds Sodium (135-145) mmol/L Potassium (3.5-5.0) mmol/L Chloride (101-111) mmol/L Carbon Dioxide (22-32) mmol/L Anion Gap (2-11) mmol/L BUN (6-24) mg/dL Creatinine (0.51-0.95) mg/dL Est GFR ( Amer) (>60) Est GFR (Non-Af Amer) (>60) BUN/Creatinine Ratio (8-20) Glucose (70-100) mg/dL Lactic Acid 0.7 (0.5-2.0) mmol/L Calcium (8.6-10.3) mg/dL Total Bilirubin (0.2-1.0) mg/dL AST (13-39) U/L ALT (7-52) U/L Alkaline Phosphatase (34-104) U/L Total Protein (6.4-8.9) g/dL Albumin (3.2-5.2) g/dL Globulin (2-4) g/dL Albumin/Globulin Ratio (1-3) Urine Color Straw Urine Appearance Cloudy Urine pH 7.0 (5-9) Ur Specific [place] 1.001 L (1.010-1.030) Urine Protein Negative (Negative) Urine Ketones Negative (Negative) Urine Blood Negative (Negative) Urine Nitrate Negative (Negative) Urine Bilirubin Negative (Negative) Urine Urobilinogen Negative (Negative) Ur Leukocyte Esterase Negative (Negative) Urine Glucose Negative (Negative) Result Diagrams: 09/28/18 21:06 09/28/18 21:06 Lab Statement: Any lab studies that have been ordered have been reviewed, and results considered in the medical decision making process. - Ultrasound No standard instances Ultrasound Interpretation Completed By: Radiologist Summary of Ultrasound Findings: IMPRESSION: Posterior left knee reactive subcutaneous edema. No abscess. Course/Dx - Course Course Of Treatment: 53-year-old female presents with cellulitis to left leg for the past couple days. She started on Keflex 2 days ago. She saw her primary this morning and was told to stop keflex and start Bactrim. She states she was having fevers but they resolved this morning. She states redness has been spreading today. She admits to chills that have resolved. She states it is very painful. It started as a bug bite with itchy but itchiness has resolved. States she gets occasional shortness of breath. No chest pain. No sore throat. She took some Benadryl which seemed to help. No history of this. No drainage from the area. On exam has cellulitis of left leg behind the knee. Ultrasound shows no abscess. wbc normal. vitals stable here. Gave dosed IV clindamycin. Potassium was at 2.8 so gave IV potassium and oral potassium. Will have continue potassium. Discussed this patient has no medical conditions and labs and vitals are normal Will have continue Keflex and Bactrim as just started the Bactrim. gave diflucain for a yeast infection. Told if redness continues to spread-or develop fevers should return for potential admission but at this point outpatient treatment for cellulitis can be continued with more coverage for the cellulitis with both keflex and bactrim. Told to get a wound check in 2 days to make sure is improving. Patient understands and agrees with plan. - Differential Diagnoses - Skin Complaint Differential Diagnoses: Abscess, Cellulitis, Contact Dermatitis - Diagnoses Provider Diagnoses: Cellulitis, Hypokalemia Discharge - Sign-Out/Discharge Documenting (check all that apply): Patient Departure Patient Received Moderate/Deep Sedation with Procedure: No - Discharge Plan Condition: Good Disposition: HOME Prescriptions: Fluconazole 150 MG TAB* [Diflucan 150 MG TAB*] 150 mg PO ONCE #1 tablet Potassium Chlor TAB* [Potassium Chlor TAB 20 MEQ*] 20 meq PO DAILY #3 tab.er Patient Education Materials: Cellulitis (ED) Referrals: Stacy Ni [Primary Care Provider] - Additional Instructions: continue both keflex and bactrim Take ibuprofen every 6 hours for pain elevate leg Return to ED if redness continues to spread, develop persistent fevers or any new or worsening symptoms - Billing Disposition and Condition Condition: GOOD Disposition: Home
[2018-09-29 00:45] VITALS: BP 108/92
== END 2018-09-29 00:44 | disposition home or self-care (01) ==
LOC: ED 20:38
DX: L03.116 Cellulitis of left lower limb (principal); E87.6 Hypokalemia
CPT/HCPCS: 36415; 80053; 81003; 83605; 85025; 85610; 85730; 87040; 96365; 96366; 99283; A9270-GY; J3480